=== PATIENT | female | born 1935 | race Caucasian/White ===

== ENCOUNTER 2020-07-17 00:33 | Emergency (ER) | payer MEDICARE, OTHER ==
[2020-07-17 00:38] VITALS: RESP 18; TEMP 99
--- NOTE | 2020-07-17 01:03 | ED ---
Fall HPI - General Chief Complaint: Fall Stated Complaint: Fall Time Seen by Provider: 07/17/20 00:46 Source: patient, family Mode of arrival: wheelchair - History of Present Illness Initial Comments: Yuly is a pleasant 85-year-old female who is brought to the ER today with he r daughter for evaluation of pain and falls. Daughter reports that the patient had a fall on and has been complaining of pain in her right hip since that time, daughter believes the patient just slipped out of bed. She reports it happened again today. Did not hit her head has been no altered mental status and complains of pain in her right hip. Daughter also states that the patient has not been eating or drinking well she's concerned that she is weak due to dehydration. Daughter notes that her mom had some blisters on her lips on but they seem to be improving with hydration. - Related Data Previous Rx's Medication Instructions Recorded Lidocaine 5% Patch [Lidoderm] 1 patch TOPICAL DAILY #30 patch 07/17/20 Allergies Allergy/AdvReac Type Severity Reaction Status Date / Time codeine Allergy Itching Verified 07/17/20 00:38 Review of Systems ROS Statement: Those systems with pertinent positive or pertinent negative responses have been documented in the HPI. ROS Other: All systems not noted in ROS Statement are negative. Past Medical History Past Medical History: GERD/Reflux, Hypertension Additional Past Medical History / Comment(s): restless leg History of Any Multi-Drug Resistant Organisms: None Reported Past Surgical History: Back Surgery Past Psychological History: No Psychological Hx Reported Smoking Status: Never smoker Past Alcohol Use History: None Reported Past Drug Use History: None Reported General Exam - General Exam Comments Initial Comments: Physical Exam GENERAL: debilitated HENT: Normocephalic, Atraumatic. Blistering of lips, no oral lesions EYES: PERRL, EOMI PULMONARY: Unlabored respirations. CARDIOVASCULAR: RRR Warm and well perfused extremities ABDOMEN: Non-distended SKIN: No rashes or bruising : Deferred NEUROLOGIC: Alert and oriented Normal speech MUSCULOSKELETAL: Pain with range of motion of right hip Severe kyphosis PSYCHIATRIC: No SI/HI Limitations: no limitations Course Vital Signs 07/17/20 00:35 Temperature 99 F Pulse Rate 82 Respiratory 18 Rate Blood Pressure 134/77 O2 Sat by Pulse 94 L Oximetry Medical Decision Making - Medical Decision Making The patient was seen and evaluated history is obtained from the patient and mally josephdeborah bedside Labs were obtained CT imaging was obtained of the spine and x-rays of the hips CT imaging has multiple compression fractures all of which appear to be likely old daughter was aware of these, there is bilateral sacral fractures, this is new information of the daughter but appears to be chronic in nature as there is callus formation X-ray of the hip reveals no acute fractures Labs are concerning for dehydration with elevated BUN and creatinine and decreased GFR, patient receive IV fluid bolus Patient's discomfort will be treated with Lidoderm patch and she will be prescribed Lidoderm upon discharge I offered to keep the patient in observation for pain management and evaluation by spinal surgery however daughter states that the patient would not desire any surgery doesn't want to be on stronger pain medications, knowing that she doesn't have a hip fracture comfortable with plan for discharge home continued supportive care - Lab Data Result diagrams: 07/17/20 02:38 07/17/20 01:23 Lab Results 07/17/20 07/17/20 07/17/20 Range/Units 01:23 01:23 02:38 WBC 6.3 (3.8-10.6) k/uL RBC 3.04 L (3.80-5.40) m/uL Hgb 10.5 L (11.4-16.0) gm/dL Hct 33.1 L (34.0-46.0) % MCV 108.8 H (80.0-100.0) fL MCH 34.5 (25.0-35.0) pg MCHC 31.7 (31.0-37.0) g/dL RDW 12.9 (11.5-15.5) % Plt Count 242 (150-450) k/uL Neutrophils % 65 % Lymphocytes % 27 % Monocytes % 2 % Eosinophils % 3 % Basophils % 0 % Neutrophils # 4.1 (1.3-7.7) k/uL Lymphocytes # 1.7 (1.0-4.8) k/uL Monocytes # 0.1 (0-1.0) k/uL Eosinophils # 0.2 (0-0.7) k/uL Basophils # 0.0 (0-0.2) k/uL Macrocytosis Moderate Sodium 136 L (137-145) mmol/L Potassium 5.3 H (3.5-5.1) mmol/L Chloride 102 (98-107) mmol/L Carbon Dioxide 28 (22-30) mmol/L Anion Gap 6 mmol/L BUN 36 H (7-17) mg/dL Creatinine 1.57 H (0.52-1.04) mg/dL Est GFR (CKD-EPI)AfAm 34 (>60 ml/min/1.73 sqM) Est GFR (CKD-EPI)NonAf 29 (>60 ml/min/1.73 sqM) Glucose 128 H (74-99) mg/dL Calcium 8.5 (8.4-10.2) mg/dL Total Bilirubin 1.0 (0.2-1.3) mg/dL AST 61 H (14-36) U/L ALT 7 (4-34) U/L Alkaline Phosphatase 41 (38-126) U/L Total Protein 6.9 (6.3-8.2) g/dL Albumin 3.6 (3.5-5.0) g/dL Urine Color Yellow Urine Appearance Clear (Clear) Urine pH 6.5 (5.0-8.0) Ur Specific [place] 1.012 (1.001-1.035) Urine Protein Negative (Negative) Urine Glucose (UA) Negative (Negative) Urine Ketones Negative (Negative) Urine Blood Negative (Negative) Urine Nitrite Negative (Negative) Urine Bilirubin Negative (Negative) Urine Urobilinogen <2.0 (<2.0) mg/dL Ur Leukocyte Esterase Negative (Negative) Disposition Clinical Impression: Fall, Compression fracture of body of thoracic vertebra, Sacral fracture, closed, Dehydration, Debility Disposition: HOME SELF-CARE Prescriptions: Lidocaine 5% Patch [Lidoderm] 1 patch TOPICAL DAILY #30 patch Is patient prescribed a controlled substance at d/c from ED?: No Referrals: Nonstaff,Physician [Primary Care Provider] - 1-2 days
[2020-07-17] MEDS ORDERED: SODIUM CHLORIDE 0.9% 1,000 ML IV ONE ×2 (01:07→02:02)
[2020-07-17 01:40] LABS: Appearance,Urine Clear (Clear); Bilirubin,Urine Negative (Negative); Blood,Urine Negative (Negative); Color,Urine Yellow; Glucose,Urine (UA) Negative (Negative); Ketones,Urine Negative (Negative); Leukocyte Esterase,Urine Negative (Negative); Nitrite,Urine Negative (Negative); PH, Urine 6.5 (5.0-8.0); Protein,Urine Negative (Negative); Specific Gravity,Urine 1.012 (1.001-1.035); Urobilinogen,Urine <2.0 mg/dL (<2.0)
[2020-07-17 01:49] LABS: Albumin 3.6 g/dL (3.5-5.0); Calcium 8.5 mg/dL (8.4-10.2); Total Protein 6.9 g/dL (6.3-8.2)
[2020-07-17 01:55] LABS: Potassium 5.3 mmol/L (3.5-5.1)
[2020-07-17] MEDS ORDERED: SODIUM CHLORIDE 0.9% 1,000 ML IV SCH (02:15)
--- NOTE | 2020-07-17 02:31 | XR ---
EXAMINATION TYPE: XR Hip Complete RT DATE OF EXAM: 07/17/2020 COMPARISON: NONE HISTORY: Fall. Pain. TECHNIQUE: 2 views FINDINGS: There is right hip prosthesis. Components appear in anatomic position. I see no fracture. T here is mild vascular calcification. IMPRESSION: No acute abnormality of the right hip.
[2020-07-17 02:43] LABS: Basophils % (A) 0 %; Eosinophils # (A) 0.2 k/uL (0-0.7); Eosinophils % (A) 3 %; HCT 33.1 % (34.0-46.0); HGB 10.5 gm/dL (11.4-16.0); Lymphocytes # (A) 1.7 k/uL (1.0-4.8); Lymphocytes % (A) 27 %; MCH 34.5 pg (25.0-35.0); MCHC 31.7 g/dL (31.0-37.0); MCV 108.8 fL (80.0-100.0); Macrocytosis Moderate; Mean Platelet Volume 7.4; Monocytes # (A) 0.1 k/uL (0-1.0); Monocytes % (A) 2 %; Neutrophils # (A) 4.1 k/uL (1.3-7.7); Neutrophils % (A) 65 %; Platelet Count 242 k/uL (150-450); RBC 3.04 m/uL (3.80-5.40); RDW 12.9 % (11.5-15.5); WBC 6.3 k/uL (3.8-10.6)
--- NOTE | 2020-07-17 02:46 | CT ---
EXAMINATION TYPE: CT thor lumbar spine wo con DATE OF EXAM: 07/17/2020 COMPARISON: None HISTORY: fall CT DLP: 976.3 mGycm Automated exposure control for dose reduction was used. Images were obtained from the level of T2 vertebra to the S to vertebra without contrast. There is metal rods and screws fusing posteriorly the lumbar spine from L2 to L5. There is metal ivan fact. There is osteopenia. There is 70 prior percent wedging of T12 vertebra. There is 15% wedging of T11 v ertebra. There is 30% compression deformity of T8 vertebra. There is 20% compression of T7 vertebra. There is 75% compression deformity of T3 vertebra. The age of these fractures is not clear. These are very likely all old fractures. There is thoracolumbar dextroscoliosis. The sacroiliac joints appear anatomic. There is some right side paraspinal infiltrate in the right lower lobe. I see no focal bone destruction to suggest metastatic disease. There is previous posterior fusion surgery with bone tamy t at the L5-S1 level. There is bilateral fractures through the lateral masses of the sacrum. These fractures are probably c hronic. IMPRESSION: Numerous compression fractures are more likely old.. Comparison with an old exam would be helpful. There is bilateral fractures of the sacrum near the sacroiliac joints that appear to be chronic fract ures with callus formation. Fracture lines are still visible. Infiltrate in the right lower lobe in the right paraspinal region is consistent with scarring and inf lammatory disease.
[2020-07-17] MEDS ORDERED: LIDOCAINE 5% PATCH TOPICAL STA (02:52)
[2020-07-17 02:57] LABS: INR 0.9 (<1.2); Prothrombin Time 9.5 sec (9.0-12.0)
[2020-07-17 02:59] LABS: Partial Thromboplastin Time 17.8 sec (22.0-30.0)
[2020-07-17 03:53] VITALS: BP 125/52; PULSE 86
== END 2020-07-17 04:17 | disposition home or self-care (01) ==
LOC: EC 00:33
DX: S22.009A Unspecified fracture of unspecified thoracic vertebra, initial encounter for closed fracture (principal); S32.10XA Unspecified fracture of sacrum, initial encounter for closed fracture; R79.89 Other specified abnormal findings of blood chemistry; R53.81 Other malaise; E86.0 Dehydration; Z88.5 Allergy status to narcotic agent; Z98.890 Other specified postprocedural states; W06.XXXA Fall from bed, initial encounter
CPT/HCPCS: 36415; 72128; 72131; 73502; 80053; 81003; 85025; 85610; 85730; 96360; 96361; 99284